=== PATIENT | male | born 1965 | race Caucasian/White ===

== ENCOUNTER → 2019-12-27 14:38 | Outpatient (CLI) | payer OTHER, SELFPAY ==
--- NOTE | 2019-12-27 | DI.ECHO.S_ITS ---
[facility]---------+ [facility] +---------+ : : [address] : : : : [id number] : : : : Phone: [phone] Echocardiogram Report + + :Name: PATRICK SNYDER Study Date: 12/27/2019 Height: 73 in : :[facility] Weight: 286 lb : : Gender: Male BSA: 2.5 m2 : :: 1965 Age: 54 yrs BP: 152/86 mmHg: :Reason For Study: MITRAL REGURGITATION : :Ordering Physician: LYNDSEY, : :RUSLAN Performed By: Patricia Segura : :Referring: RUSLAN SOLORIO : + + Interpretation Summary The left ventricular ejection fraction is normal. The basal to mid elías- and inferolateral estrada appear hypokinetic. But overall these estrada are not adequately visualized. No other obvious wall motion abnormalities. Although the end-diastolic volume is increased, this does not represent a dilated LV as the measurement involves a thin-walled inferolateral wall. There is an eccentric jet of mitral regurgitation that is directed posteriorly, related to basal inferolateral wall hypokinesis. The right ventricle is normal in size and function. Pulmonary artery pressures cannot be estimated because of the lack of a measurable TR jet velocity but the IVC suggests a CVP of around 3 mmHg. -Compared to the prior echocardiogram, the left atrial size and diastolic parameters have improved. Procedure: A two-dimensional transthoracic echocardiogram with color flow and Doppler was performed. The study quality was technically adequate. Comparison is made with the echocardiogram of 12/22/2018. The patient has a paced rhythm. The heart rate ranged between 58-61 bpm during the study. Left Ventricle: The left ventricle is mildly dilated. Left ventricular wall thickness is at the upper limits of normal. The ejection fraction is estimated to be 60-65%. The left ventricular ejection fraction is normal. The basal to mid elías- and inferolateral estrada appear hypokinetic. But overall these setrada are not adequately visualized. No other obvious wall motion abnormalities. Diastolic parameters suggest probable normal left ventricular diastolic function and normal filling pressures. Right Ventricle: The right ventricle is normal in size and function. There is a pacemaker lead in the right ventricle. Atria: The left atrial size is normal. Right atrial size is normal. There is no Doppler evidence for an interatrial shunt. Mitral Valve: The mitral valve is normal in structure and function. There is mild mitral regurgitation. There is an eccentric jet of mitral regurgitation that is directed posteriorly, related to basal inferolateral wall hypokinesis. Aortic Valve: The aortic valve is trileaflet. The aortic valve is slightly calcified. There is mild aortic valve sclerosis. There is trace aortic regurgitation. Tricuspid Valve: The tricuspid valve is not well visualized, but is grossly normal. There is a trace or physiologic amount of tricuspid regurgitation. Pulmonary artery pressures cannot be estimated because of the lack of a measurable TR jet velocity but the IVC suggests a CVP of around 3 mmHg. Pulmonic Valve: The pulmonic valve is not well visualized. The pulmonic valve is not well seen, but is grossly normal. There is no pulmonic valvular regurgitation. Great Vessels: The aortic root is normal size. The ascending aorta is mildly enlarged. The IVC is of normal diameter and collapses greater than 50% with a sniff. This suggests a low right atrial pressure of 3 mm Hg. Pericardium/ Pleura There is no pericardial effusion. There is an anterior echo-free space consistent with a fat pad. There is no pleural effusion. MMode/2D Measurements & Calculations LVIDd: 6.6 cm LVOT diam: 2.5 cm LVIDs: 4.4 cm Ao root diam: 3.6 cm FS: 34.0 % asc Aorta Diam: 4.0 cm IVSd: 1.3 cm Ao Arch Diam (Prox Trans): 3.2 cm LVPWd: 0.96 cm LV kaiser. diameter/BSA (cm/m^2): 2.6 LV sys. diameter/BSA (cm/m^2): 1.7 LA A2 area: 27.0 cm2 RA long axis: 5.0 cm LA A4 area: 19.0 cm2 RA area: 18.0 cm2 LA length (vol): 5.4 cm RA vol: 54.4 ml LA vol: 80.3 ml RA : 21.7 ml/m2 LA vol index: 32.1 ml/m2 IVC diam: 1.3 cm RVD1 (basal): 3.0 cm TAPSE: 1.8 cm Doppler Measurements & Calculations Ao V2 max: 235.9 cm/sec LVOT Max Jamie: 120.8 cm/sec Ao V2 mean: 151.0 cm/sec LV V1 max P.8 mmHg Ao max P.3 mmHg LV V1 VTI: 25.8 cm Ao mean P.8 mmHg KRISTEL(I,D): 2.3 cm2 Ao V2 VTI: 53.4 cm KRISTEL(V,D): 2.5 cm2 sev ratio: 0.48 KRISTEL indexed to BSA (cm^2/m^2): 0.93 MV E max jamie: 90.3 cm/sec PA V2 max: 99.1 cm/sec MV A max jamie: 91.0 cm/sec PA V2 mean: 69.8 cm/sec MV E/A: 0.99 PA mean P.2 mmHg Med Peak E' Jamie: 8.1 cm/sec PA pr(Accel): 39.6 mmHg E/E' med: 11.2 Lat Peak E' Jamie: 13.3 cm/sec E/E' lat: 6.8 E/e' average: 9.0 MV dec time: 0.34 sec MR ERO: 0.21 cm2 MR PISA: 2.7 cm2 SV(LVOT): 124.1 ml MR flow rate: 113.3 cm3/sec MR PISA radius: 0.65 cm Electronically signed by: Ruslan Solorio M.D. on Reading Physician:12/29/2019 02:11 PM
== END ==
PROVIDERS: PCP Physician Assistant Medical; Referring Provider Hospitalist; Visit Provider Hospitalist
DX: I08.0 Rheumatic disorders of both mitral and aortic valves (principal); I77.89 Other specified disorders of arteries and arterioles
CPT/HCPCS: 93306

== ENCOUNTER 2021-06-17 08:13 | Emergency (ER) | payer OTHER, SELFPAY ==
[2021-06-17] VITALS (17 sets, daily range): BP systolic 147–193; BP diastolic 68–87; PULSE 53–68; RESP 18; TEMP 36.9; O2SAT 97–100; BMI 34.3
--- NOTE | 2021-06-17 08:38 | ED_ITS ---
HPI - Fall General Chief Complaint: Fall Stated Complaint: LT. WRIST PAIN AFTER FALL Time Seen by Provider: 06/17/21 08:38 Source: patient Mode of arrival: Ambulatory History of Present Illness HPI Narrative: 55-year-old gentleman with history of diabetes, hyperlipidemia, hypertension(has not taking his morning medications yet) was playing golf yesterday fell forward landing on both hands with the majority of the pain and pressure in the left wrist. He was able to play the remainder of the 18 holes he was scheduled play but comes in this morning because the pain continues. There is some minor swelling and bruising to the area with full range of motion. He has some minor tenderness in the right shoulder from the fall but is unconcerned with this. He is anticoagulated so can not take nonsteroidals. Finds that Tylenol isn't that effective any prefers to take no medications for pain in the 1st place. Related Data Home Medications Medication Instructions Recorded Confirmed aspirin 81 mg tablet 81 mg PO DAILY 06/17/21 06/17/21 atorvastatin 80 mg tablet 80 mg PO BEDTIME 06/17/21 06/17/21 metformin 1,000 mg tablet 100 mg PO BID 06/17/21 06/17/21 metoprolol succinate 25 mg 37.5 mg PO 06/17/21 tablet,extended release 24 hr ticagrelor 90 mg tablet (Brilinta) 80 mg PO BID 06/17/21 06/17/21 Previous Rx's Medication Instructions Recorded oxycodone-acetaminophen 5 mg-325 1 tab PO Q4HP PRN #10 tab 12/26/16 mg tablet (Percocet) Allergies Allergy/AdvReac Type Severity Reaction Status Date / Time No Known Drug Allergies Allergy Verified 06/17/21 08:21 Review of Systems Review of Systems Narrative: Remainder of complete review of systems is otherwise unremarkable except for that included in the HPI. Patient History Medical History (Updated 06/17/21 @ 11:23 by Jessica Soto MD) Anticoagulated Coronary artery disease Diabetes Hyperlipidemia Hypertension Substance Use Type: does not use Exam Narrative Exam Narrative: General: Alert appropriate in no acute distress Respiratory: Able to speak in full sentences, no obvious respiratory distress Skin: No obvious rashes, warm and dry Neurologic: Grossly intact no obvious asymmetries or abnormalities Psych: appropriate insight and affect, cooperative Extremity: Left wrist with some developing bruise over the dorsal aspect some tenderness over the interosseous membrane. Full range of motion. No snuffbox tenderness. Neurovascularly intact Initial Vital Signs Initial Vital Signs: Vital Signs Temperature 98.4 F 06/17/21 08:15 Pulse Rate 62 06/17/21 08:15 Respiratory Rate 18 06/17/21 08:15 Blood Pressure 193/84 H 06/17/21 08:15 Pulse Oximetry 100 06/17/21 08:15 Course Orders Ordered: ED Orders 06/17/21 08:42 XR wrist LT min 3V Stat Discontinued Medications Metoprolol Succinate (Metoprolol Er 25 Mg Tablet) 37.5 mg PO NOW ONE Stop: 06/17/21 08:31 Last Admin: 06/17/21 08:52 Dose: 37.5 mg Documented by: ANA Vital Signs Vital signs: Vital Signs - 8 hr 06/17/21 08:15 06/17/21 08:17 06/17/21 08:18 Temperature 98.4 F Pulse Rate 62 68 65 Respiratory Rate 18 Blood Pressure 193/84 H 193/84 H Pulse Oximetry 100 100 100 06/17/21 08:30 06/17/21 08:52 06/17/21 09:00 Temperature Pulse Rate 57 L 58 L 55 L Respiratory Rate Blood Pressure 171/68 H 171/68 H 177/79 H Pulse Oximetry 99 98 06/17/21 09:20 06/17/21 09:24 06/17/21 09:30 Temperature Pulse Rate 56 L 56 L 57 L Respiratory Rate Blood Pressure 168/80 H 156/87 H Pulse Oximetry 99 99 99 06/17/21 09:40 06/17/21 09:44 06/17/21 10:00 Temperature Pulse Rate 57 L 56 L 55 L Respiratory Rate Blood Pressure 156/85 H 156/85 H 154/69 H Pulse Oximetry 100 100 06/17/21 10:20 06/17/21 10:30 06/17/21 10:40 Temperature Pulse Rate 54 L 53 L 53 L Respiratory Rate Blood Pressure 151/71 H 161/78 H Pulse Oximetry 100 97 99 MDM - Fall Imaging Data X-ray wrist: Radiologist's Impression: FINDINGS:? ? Bones:? No fractures or dislocations.? No suspicious bony lesions.? Age- appropriate bony degenerative changes are seen.? ? Scaphoid view:? No navicular fractures are seen. ? Soft tissues:? No suspicious soft tissue calcifications.? ? IMPRESSION:? ? No displaced fractures are seen.? ? If there is snuffbox tenderness (or other clinical suspicion for a fracture not seen on these images) then a repeat examination would be recommended in 10 to 14 days, following splinting. ? ? ? Dictated by: Luis Cordoba M.D. on 06/17/2021 at 8:04 ? ? MDM Narrative Medical decision making narrative: 55-year-old gentleman who stumbled and fell while playing golf yesterday. Worried that his worst might be broken. X-ray is reassuring. It is slightly tender he does have a wrist splint at home that he can use. At this point reassurance is given, he can use Tylenol as needed for pain. He has not yet taken his morning medications and blood pressure is elevated. He will take his blood pressure medications once he is home. He is safe for home discharge Discharge Plan Departure Patient Disposition: Home Clinical Impression: Left wrist sprain Instructions: DI for Wrist Sprain Activity Restrictions/Additional Instructions: Thank you for coming in today The xray is reassuring, your wrist is not broken. I hope you heal quickly Prescriptions: No Action oxycodone-acetaminophen [Percocet] 5 MG/325 MG tablet 1 tab PO Q4HP PRNQty: 10 0RF atorvastatin 80 mg tablet 80 mg PO BEDTIME 0RF Label Comments: take 1 tablet by mouth at bedtime for cholesterol metformin 1,000 mg tablet 100 mg PO BID 0RF Label Comments: take 1 tablet by mouth twice a day with food Adult Low Dose Aspirin 81 mg Tablet 81 mg PO DAILY 0RF metoprolol succinate 25 mg tablet extended release 24 hr 37.5 mg PO 0RF Label Comments: take 1 and 1/2 tablet by mouth twice a day Brilinta 90 mg tablet 80 mg PO BID 0RF Label Comments: take 1 tablet by mouth twice a day Referrals: Silvina Pleitez PA-C [Primary Care Provider] -
--- NOTE | 2021-06-17 08:42 | DI.RAD.S_ITS ---
PROCEDURE: XR WRIST LT MIN 3V INDICATIONS: pain after fall TECHNIQUE: 4 views of the wrist were acquired. COMPARISON: None. FINDINGS: Bones: No fractures or dislocations. No suspicious bony lesions. Age-appropriate bony degenerative changes are seen. Scaphoid view: No navicular fractures are seen. Soft tissues: No suspicious soft tissue calcifications. IMPRESSION: No displaced fractures are seen. If there is snuffbox tenderness (or other clinical suspicion for a fracture not seen on these images) then a repeat examination would be recommended in 10 to 14 days, following splinting. Dictated by: Luis Cordoba M.D. on 06/17/2021 at 8:04 Approved by: Luis Cordoba M.D. on 06/17/2021 at 8:05
[2021-06-17] MEDS: METOPROLOL ER 25 MG TABLET 37.5 MG PO (08:52)
== END 2021-06-17 11:24 | disposition home or self-care (01) ==
PROVIDERS: Emergency Provider Emergency Medicine; PCP Physician Assistant Medical
DX: S63.502A Unspecified sprain of left wrist, initial encounter (principal); W18.30XA Fall on same level, unspecified, initial encounter; Y93.53 Activity, golf
CPT/HCPCS: 73110; 99283; 99284

== ENCOUNTER 2021-11-10 01:03 | Emergency (ER) | payer OTHER, SELFPAY ==
[2021-11-10] VITALS (10 sets, daily range): BP systolic 151–192; BP diastolic 70–93; PULSE 55–63; RESP 17–25; TEMP 36.7; O2SAT 94–97; BMI 34.9
--- NOTE | 2021-11-10 01:29 | ED.GENADULT ---
HPI - General Adult General Chief complaint: Shortness of Breath/Dyspnea Stated complaint: trouble breathing Time Seen by Provider: 11/10/21 01:18 Source: patient Mode of arrival: Ambulatory Limitations: no limitations History of Present Illness HPI narrative: Patient is a 55-year-old male. Is a current smoker who is here for evaluation of shortness of breath. For states he has noticed coughing and shortness of breath and this evening he states that he felt like he could not take a big deep breath. No chest pain. No palpitations. No abdominal pain. No nausea or vomiting. No change in bowel habits. No cough. No sore throat. No lower extremity swelling. He does have history of heart disease and lbx-[id number]-szumxpavn diabetes. Never been diagnosed with heart failure. No prior diagnosis of COPD. He states that he has been wheezing. He thinks that the wheezing is because of his smoking. No recent travel Related Data Home Medications Medication Instructions Recorded Confirmed aspirin 81 mg tablet 81 mg PO DAILY 06/17/21 06/17/21 atorvastatin 80 mg tablet 80 mg PO BEDTIME 06/17/21 06/17/21 metformin 1,000 mg tablet 100 mg PO BID 06/17/21 06/17/21 metoprolol succinate 25 mg 37.5 mg PO 06/17/21 tablet,extended release 24 hr ticagrelor 90 mg tablet (Brilinta) 80 mg PO BID 06/17/21 06/17/21 Previous Rx's Medication Instructions Recorded oxycodone-acetaminophen 5 mg-325 1 tab PO Q4HP PRN #10 tabs /03/16 mg tablet (Percocet) albuterol sulfate 90 mcg/actuation 2 puff inhalation Q4-6H PRN 11/10/21 aerosol inhaler shortness of breath or wheezing #8.5 grams Allergies Allergy/AdvReac Type Severity Reaction Status Date / Time No Known Drug Allergies Allergy Verified 06/17/21 08:21 Review of Systems Review of Systems ROS Unobtainable: All systems reviewed & are unremarkable except as noted in HPI and below Patient History Medical History Anticoagulated Coronary artery disease Diabetes Hyperlipidemia Hypertension Social History Smoking Status: Current every day smoker Smoking Status: Current every day smoker tobacco type: cigarettes alcohol intake frequency: 0-2 drinks per day Substance Use Type: does not use Exam Initial Vital Signs Initial Vital Signs: Vital Signs Temperature 98.0 F 11/10/21 01:05 Pulse Rate 63 11/10/21 01:05 Respiratory Rate 18 11/10/21 01:05 Blood Pressure 192/93 H 11/10/21 01:05 Pulse Oximetry 97 11/10/21 01:05 Oxygen Delivery Method 11/10/21 01:05 Const General: cooperative and comfortable HENMT Head: normal to inspection and normocephalic Resp Effort & Inspection: normal respiratory effort Auscultation: clear to auscultation bilaterally Cardio Rate: regular rate Rhythm: regular rhythm GI Inspection: normal to inspection Skin General: no rashes or lesions noted Neuro General: patient alert, patient awake and moves all extremities Extrem General: normal to inspection, capillary refill normal and No edema Psych Appearance: grossly normal and well kempt Course Orders Ordered: ED Orders 11/10/21 01:13 COVID19 -Nasal RAPID/Pre-Proc Stat 11/10/21 01:19 EKG-12 Lead Stat 11/10/21 01:30 XR chest 1V Stat Complete Blood Count AUTO DIFF Stat Comprehensive Metabolic Panel Stat Lipase Stat NT-proBNP (BNP-Adult 18+) Stat Troponin & CK Cardiac Panel Stat 11/10/21 03:30 Troponin & CK Cardiac Panel Stat Vital Signs Vital signs: Vital Signs - 8 hr 11/10/21 01:05 11/10/21 01:16 11/10/21 01:16 Temperature 98.0 F Pulse Rate 63 61 Respiratory Rate 18 Blood Pressure 192/93 H 185/82 H Pulse Oximetry 97 97 Oxygen Delivery Method Room Air 11/10/21 01:30 11/10/21 01:34 11/10/21 01:34 Temperature Pulse Rate 58 L 57 L Respiratory Rate 21 19 Blood Pressure 152/71 H Pulse Oximetry 96 96 Oxygen Delivery Method 11/10/21 02:00 11/10/21 02:00 11/10/21 02:30 Temperature Pulse Rate 58 L 56 L Respiratory Rate 18 17 Blood Pressure 157/73 H Pulse Oximetry 96 96 Oxygen Delivery Method Room Air 11/10/21 02:31 11/10/21 02:31 11/10/21 03:00 Temperature Pulse Rate 56 L Respiratory Rate 21 Blood Pressure 153/70 H 151/70 H Pulse Oximetry 96 Oxygen Delivery Method 11/10/21 03:00 Temperature Pulse Rate 55 L Respiratory Rate 25 H Blood Pressure Pulse Oximetry 94 Oxygen Delivery Method Room Air Medical Decision Making Lab Data Lab results reviewed: Yes I reviewed the patient's lab results. Result diagrams: 11/10/21 01:30 11/10/21 01:30 Labs: Lab Results 11/10/21 11/10/21 11/10/21 Range/Units 01:13 01:30 01:30 WBC 10.6 (4.5-11.0) X10^3/uL RBC 4.37 L (4.5-5.9) X10^6/uL Hgb 12.4 L (13.5-17.5) g/dL Hct 36.5 L (41-53) % MCV 83.5 (80-100) fL MCH 28.3 (26-34) PG MCHC 33.9 (30-36) % RDW 14.8 (11.6-14.8) % Plt Count 176 (150-400) X10^3/uL Neut % (Auto) 68.1 (50-75) % Lymph % (Auto) 23.5 L (25-40) % Tillman % (Auto) 6.5 (3-14) % Eos % (Auto) 1.4 L (2-4) % Baso % (Auto) 0.5 (0-2) % Neut # (Auto) 7200 H (9810-6132) /uL Lymph # (Auto) 2500 (1809-4186) /uL Tillman # (Auto) 700 (0-900) /uL Eos # (Auto) 100 (0-450) /uL Baso # (Auto) 100 (0-100) /uL Sodium 142 (137-145) mmol/L Potassium 3.8 (3.4-5.1) mmol/L Chloride 111 H (98-107) mmol/L Carbon Dioxide 21 L (22-32) mmol/L BUN 21 H (9-20) mg/dL Creatinine 0.69 (0.66-1.25) mg/dL Estimated GFR > 60 (>60) mL/min BUN/Creatinine Ratio 30.4 H (6-22) Glucose 108 H (70-100) mg/dL Calcium 9.1 (8.4-10.2) mg/dL Total Bilirubin 0.5 (0.2-1.3) mg/dL AST 25 (17-59) IU/L ALT 26 (<50) IU/L Alkaline Phosphatase 83 (38-126) U/L Total Creatine Kinase 211 H (55-170) U/L CK-MB (CK-2) 2.13 (<2.37) ng/mL CK-MB (CK-2) Rel Index 1.0 L (1.5-5.0) % Troponin I < 0.012 (0.01-0.034) ng/mL NT-Pro-B Natriuret Pep 854 H (<125) pg/mL Total Protein 7.0 (6.3-8.2) g/dL Albumin 4.1 (3.5-5.0) g/dL Globulin 2.9 (1.7-4.1) g/dL Albumin/Globulin Ratio 1.4 (1.0-2.8) Lipase 121 (23-300) U/L SARS-CoV-2 (PCR) Negative (Negative) 11/10/21 Range/Units 03:30 WBC (4.5-11.0) X10^3/uL RBC (4.5-5.9) X10^6/uL Hgb (13.5-17.5) g/dL Hct (41-53) % MCV (80-100) fL MCH (26-34) PG MCHC (30-36) % RDW (11.6-14.8) % Plt Count (150-400) X10^3/uL Neut % (Auto) (50-75) % Lymph % (Auto) (25-40) % Tillman % (Auto) (3-14) % Eos % (Auto) (2-4) % Baso % (Auto) (0-2) % Neut # (Auto) (6084-9837) /uL Lymph # (Auto) (5275-3368) /uL Tillman # (Auto) (0-900) /uL Eos # (Auto) (0-450) /uL Baso # (Auto) (0-100) /uL Sodium (137-145) mmol/L Potassium (3.4-5.1) mmol/L Chloride (98-107) mmol/L Carbon Dioxide (22-32) mmol/L BUN (9-20) mg/dL Creatinine (0.66-1.25) mg/dL Estimated GFR (>60) mL/min BUN/Creatinine Ratio (6-22) Glucose (70-100) mg/dL Calcium (8.4-10.2) mg/dL Total Bilirubin (0.2-1.3) mg/dL AST (17-59) IU/L ALT (<50) IU/L Alkaline Phosphatase (38-126) U/L Total Creatine Kinase 163 (55-170) U/L CK-MB (CK-2) 2.55 H (<2.37) ng/mL CK-MB (CK-2) Rel Index 1.6 (1.5-5.0) % Troponin I < 0.012 (0.01-0.034) ng/mL NT-Pro-B Natriuret Pep (<125) pg/mL Total Protein (6.3-8.2) g/dL Albumin (3.5-5.0) g/dL Globulin (1.7-4.1) g/dL Albumin/Globulin Ratio (1.0-2.8) Lipase (23-300) U/L SARS-CoV-2 (PCR) (Negative) Imaging Data Chest x-ray: Radiologist's Impression: [address] [address] XRay Report Signed Patient: Sonu Ann MR#: [id number] : 1965 Acct:[id number] Age/Sex: 55 / M Date of Service: 11/10/21 Loc: ED Accession Number: [id number] ?? Procedure: XR chest 1V Ordering Provider: Valente Husain D.O. PROCEDURE:? XR CHEST 1V ? INDICATIONS:? SOb ? TECHNIQUE:? One view of the chest was acquired.? ? COMPARISON:? [facility], , XR CHEST 2 VIEWS, 10/13/2018, 5:45. ? FINDINGS:? ? Surgical changes and devices:? Left chest wall AICD redemonstrated with leads projecting over the right atrium and right ventricle.? ? Lungs and pleura:? There are low lung volumes.? No focal consolidation.? No pleural effusions or pneumothorax.? ? Mediastinum:? Mediastinal contours appear normal.? Heart size appears mildly enlarged.? ? Bones and chest wall:? No suspicious bony lesions.? Overlying soft tissues appear unremarkable.? ? IMPRESSION:? ? 1. Low lung volumes without definite acute cardiopulmonary disease. ? ? Dictated by: Ralph Ro M.D. on 11/10/2021 at 2:01 ? ? Approved by: Ralph Ro M.D. on 11/10/2021 at 2:02 ECG Data Attestation: I personally reviewed and interpreted this ECG as follows: Interpretation: Sinus rhythm Ventricular rate 59 Normal axis QRS on to 8 milliseconds Normal QTC No ST T wave changes of MDM Narrative Medical decision making narrative: Troponins negative x2. He EKG unremarkable. Chest x-ray is negative. Clear lung exam. Not hypoxic. Not tachypneic. Clinically not heart failure. Patient is a smoker so I suspect that there is a degree of COPD but I informed the patient he does need to follow-up with his primary doctor to discuss further evaluation of this. He was given return precautions and follow-up instructions. He expressed understanding and agreement. Discharge Plan Departure Patient Disposition: Home Clinical Impression: Shortness of Breath Instructions: DI for Shortness of Breath Activity Restrictions/Additional Instructions: I do recommend that you contact your primary doctor for a follow-up to discuss further evaluation of your breathing. Return to the emergency department for any new or worsening symptoms. Prescriptions: New albuterol sulfate 90 mcg/actuation HFA aerosol inhaler 2 puff inhalation Q4-6H PRN (Reason: shortness of breath or wheezing) Qty: 8.5 0RF No Action oxycodone-acetaminophen [Percocet] 5 MG/325 MG tablet 1 tab PO Q4HP PRNQty: 10 0RF atorvastatin 80 mg tablet 80 mg PO BEDTIME Label Comments: take 1 tablet by mouth at bedtime for cholesterol metformin 1,000 mg tablet 100 mg PO BID Label Comments: take 1 tablet by mouth twice a day with food Adult Low Dose Aspirin 81 mg Tablet 81 mg PO DAILY metoprolol succinate 25 mg tablet extended release 24 hr 37.5 mg PO Label Comments: take 1 and 1/2 tablet by mouth twice a day Brilinta 90 mg tablet 80 mg PO BID Label Comments: take 1 tablet by mouth twice a day Referrals: Silvina Pleitez PA-C [Primary Care Provider] -
--- NOTE | 2021-11-10 01:30 | DI.RAD.S_ITS ---
PROCEDURE: XR CHEST 1V INDICATIONS: SOb TECHNIQUE: One view of the chest was acquired. COMPARISON: [facility], CR, XR CHEST 2 VIEWS, 10/13/2018, 5:45. FINDINGS: Surgical changes and devices: Left chest wall AICD redemonstrated with leads projecting over the right atrium and right ventricle. Lungs and pleura: There are low lung volumes. No focal consolidation. No pleural effusions or pneumothorax. Mediastinum: Mediastinal contours appear normal. Heart size appears mildly enlarged. Bones and chest wall: No suspicious bony lesions. Overlying soft tissues appear unremarkable. IMPRESSION: 1. Low lung volumes without definite acute cardiopulmonary disease. Dictated by: Ralph Ro M.D. on 11/10/2021 at 2:01 Approved by: Ralph Ro M.D. on 11/10/2021 at 2:02
[2021-11-10 01:42] LABS: COVID19 -Nasal RAPID Negative (Negative)
[2021-11-10 01:43] LABS: Add Manual Diff / Slide Review NO; Basophils Absolute Auto 100 /uL (0-100); Basophils Percent Auto 0.5 % (0-2); Eosinophils Absolute Auto 100 /uL (0-450); Eosinophils Percent Auto 1.4 % (2-4); Hematocrit 36.5 % (41-53); Hemoglobin 12.4 g/dL (13.5-17.5); Lymphocytes Absolute Auto 2500 /uL (1100-4500); Lymphocytes Percent Auto 23.5 % (25-40); Mean Corpuscular HGB Conc 33.9 % (30-36); Mean Corpuscular Hemoglobin 28.3 PG (26-34); Mean Corpuscular Volume 83.5 fL (80-100); Monocytes Absolute Auto 700 /uL (0-900); Monocytes Percent Auto 6.5 % (3-14); Neutrophils Absolute Auto 7200 /uL (1500-7000); Neutrophils Percent Auto 68.1 % (50-75); Platelet Count 176 X10^3/uL (150-400); Red Blood Cell Count 4.37 X10^6/uL (4.5-5.9); Red Cell Distribution Width 14.8 % (11.6-14.8); White Blood Cell Count 10.6 X10^3/uL (4.5-11.0)
[2021-11-10 01:46] LABS: Alanine Aminotransferase 26 IU/L (<50); Albumin 4.1 g/dL (3.5-5.0); Albumin Globulin Ratio 1.4 (1.0-2.8); Alkaline Phosphatase 83 U/L (38-126); Aspartate Aminotransferase 25 IU/L (17-59); BUN Creatinine Ratio 30.4 (6-22); Bilirubin Total 0.5 mg/dL (0.2-1.3); Blood Urea Nitrogen 21 mg/dL (9-20); Calcium 9.1 mg/dL (8.4-10.2); Carbon Dioxide 21 mmol/L (22-32); Chloride 111 mmol/L (98-107); Creatine Kinase 211 U/L (55-170); Estimated Glomerular Filt Rate > 60 mL/min (>60); Globulin 2.9 g/dL (1.7-4.1); Glucose 108 mg/dL (70-100); HEMOLYSIS < 15 (0-50); Lipase 121 U/L (23-300); Potassium 3.8 mmol/L (3.4-5.1); Sodium 142 mmol/L (137-145)
[2021-11-10 01:58] LABS: NT-proBNP (BNP-Adult 18+) 854 pg/mL (<125); Troponin I < 0.012 ng/mL (0.01-0.034)
[2021-11-10 02:01] LABS: Creatine Kinase MB 2.13 ng/mL (<2.37)
[2021-11-10 03:46] LABS: Creatine Kinase 163 U/L (55-170)
[2021-11-10 03:59] LABS: Troponin I < 0.012 ng/mL (0.01-0.034)
[2021-11-10 04:02] LABS: CKMB % Relative Index 1.6 % (1.5-5.0); Creatine Kinase MB 2.55 ng/mL (<2.37)
== END 2021-11-10 04:38 | disposition home or self-care (01) ==
PROVIDERS: Emergency Provider Emergency Medicine; PCP Physician Assistant Medical
DX: R06.02 Shortness of breath (principal); R07.9 Chest pain, unspecified; Z20.822 Contact with and (suspected) exposure to COVID-19
CPT/HCPCS: 36415; 71045; 80053; 82550; 82553; 83690; 83880; 84484; 85025; 87635; 93005; 93010; 99283; 99284; C9803